=== PATIENT | male | born 1995 | race Caucasian/White ===

== ENCOUNTER 2022-06-05 06:28 | Emergency (ER) | payer OTHER ==
[~2022-06-05] VITALS: Ht 167.6 cm; Wt 63.5 kg
--- NOTE | 2022-06-05 06:31 | NUR ---
PT ELVIN WOLFE , TAKEN TO CHAIR
[2022-06-05 06:39] VITALS: BP 134/60
--- NOTE | 2022-06-05 08:01 | NUR ---
Patient discharged with v/s stable. Written and verbal after care instructions [employer] given and explained. Patient verbalized understanding. Ambulatory with in custody. All questions addressed prior to discharge. Advised to follow up with PMD.
== END 2022-06-05 07:30 ==
LOC: MED 06:28
DX: Z02.89 Encounter for other administrative examinations (principal); V49.88XA Car occupant (driver) (passenger) injured in other specified transport accidents, initial encounter; Y93.89 Activity, other specified; Y92.89 Other specified places as the place of occurrence of the external cause; Y99.8 Other external cause status
CPT/HCPCS: 99283